=== PATIENT | female | born 1940 | race Caucasian/White ===

== ENCOUNTER 2019-05-07 12:25 | Emergency (ER) | payer MEDICARE, OTHER ==
--- NOTE | 2019-05-07 14:43 | EDM.PDOC ---
ED HPI GENERAL MEDICAL PROBLEM - General Chief Complaint: Eye Problems Stated Complaint: LT EYE REDNESS/LEAKING Time Seen by Provider: 05/07/19 14:38 Source of Information: Reports: Patient History Limitations: Reports: No Limitations - History of Present Illness INITIAL COMMENTS - FREE TEXT/NARRATIVE: pt has a red swollen left eye ld area. This is scakley and has the appearance of a allergic reaction. Onset: Today Duration: Hour(s): Location: Reports: Face, Other (pt has seen her optomitrist in [place] who told her it was dry eyes. She is on sustain drops in both eyes. She has been living in an apartment where the carpet was just all redone. 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 ) Respiratory: Reports: No Symptoms Cardiovascular: Reports: No Symptoms Endocrine: Reports: No Symptoms GI/Abdominal: Reports: No Symptoms : Reports: No Symptoms Musculoskeletal: Reports: No Symptoms ED EXAM GENERAL W FULL EYE - Physical Exam Exam: See Below Text/Narrative:: pt arrived with a red scaley swollen left eye lid that is not real painful. She has no visual changes. Exam Limited By: No Limitations General Appearance: Alert, Anxious, Mild Distress, Other ( the eye lid on the left is scaley and red with swelling. The white of the eye is not injected. ) Extraocular Movements: Bilateral: Intact Ears: Normal TMs Nose: Normal Inspection Throat/Mouth: Normal Inspection Head: Atraumatic Neck: Normal Inspection Course - Vital Signs Last Recorded V/S: Last Vital Signs Temp 36.8 C 05/07/19 13:21 Pulse 67 05/07/19 13:21 Resp 16 05/07/19 13:21 BP 137/49 L 05/07/19 13:21 Pulse Ox 96 05/07/19 13:21 - Orders/Labs/Meds Orders: Active Orders 24 hr Category Date Time Status Dexamethasone/Tobramycin [Tobradex Ophth Oint] Med 05/07/19 14:47 Once 1 gm EYELF ONETIME ONE Medication Orders Tobramycin/Dexamethasone (Tobradex Ophth Oint) 1 gm EYELF ONETIME ONE Stop: 05/07/19 14:48 Meds: Medications Generic Name Dose Route Start Last Admin Trade Name Freq PRN Reason Stop Dose Admin Tobramycin/Dexamethasone 1 gm 05/07/19 14:47 Tobradex Ophth Oint EYELF 05/07/19 14:48 ONETIME ONE - Re-Assessments/Exams Free Text/Narrative Re-Assessment/Exam: 05/07/19 14:48 pt was given tobradex ointment and this was applied to the eyelid area. Departure - Departure Time of Disposition: 14:40 Disposition: Home, Self-Care 01 Condition: Fair Clinical Impression: Allergic reaction - Discharge Information Referrals: Renny Wyman MD [Primary Care Provider] - Forms: ED Department Discharge Care Plan Goals: moist warm packs to the left eye bid, continue with the keflex, tobradex ointment apply to the eye lid tid. If no better see her eye DrLin in 4 days. Sepsis Event Note - Evaluation Sepsis Screening Result: No Definite Risk - Focused Exam Vital Signs: Vital Signs Temp Pulse Resp BP Pulse Ox 05/07/19 13:21 36.8 C 67 16 137/49 L 96 05/07/19 13:16 36.8 C 67 16 137/49 L 96 Date Exam was Performed: 05/07/19 Time Exam was Performed: 14:48 - My Orders Last 24 Hours: My Active Orders 05/07/19 14:47 Dexamethasone/Tobramycin [Tobradex Ophth Oint] 1 gm EYELF ONETIME ONE - Assessment/Plan Last 24 Hours: My Active Orders 05/07/19 14:47 Dexamethasone/Tobramycin [Tobradex Ophth Oint] 1 gm EYELF ONETIME ONE
[2019-05-07] MEDS ORDERED: Dexamethasone/Tobramycin 0.1-0.3% Ophth Oint 3.5 GM Tube EYELF ONE ×2 (14:47→15:00)
== END 2019-05-07 15:04 | disposition home or self-care (01) ==
LOC: JP.ED 12:25
DX: T78.40XA Allergy, unspecified, initial encounter (principal); E03.9 Hypothyroidism, unspecified; J45.909 Unspecified asthma, uncomplicated; Z88.1 Allergy status to other antibiotic agents; Z79.899 Other long term (current) drug therapy
CPT/HCPCS: 99283; A9270